=== PATIENT | female | born 2000 | race African-American/Black ===

== ENCOUNTER 2024-03-16 20:04 | Emergency (ER) | payer OTHER, SELFPAY ==
[2024-03-16] MEDS ORDERED: Acetaminophen 500 MG TAB ONE (22:10)
[2024-03-16 22:18] LABS: #Basophils 0.02 10x3/uL (0.0-0.2); #Monocytes 0.64 10x3/uL (0.0-1.1); #Neutrophils 4.05 10x3/uL (1.5-8.4); %Basophils 0.3 % (0.0-2.0); %Lymphocytes 33.1 % (18.0-47.0); %Monocytes 8.4 % (0.0-10.0); %Neutrophils 53.4 % (40.0-75.0); Hematocrit 40.1 % (38.8-50.0); Hemoglobin 11.9 g/dL (13.5-17.5); Mean Corpuscular HGB CONC 29.7 g/dL (32.0-36.0); Mean Corpuscular Hemoglobin 24.6 pg (27.0-33.0); Mean Corpuscular Volume 82.9 fL (81.2-95.1); Mean Platelet Volume 9.6 fL (7.4-10.4); Platelet Count 367 10x3/uL (150-450); Red Blood Cell (RBC) Count 4.84 10x6/uL (4.32-5.72); White Blood Cell (WBC) Count 7.6 10x3/uL (3.5-10.5)
[2024-03-16 22:31] LABS: BHCG - Serum Negative (NEGATIVE); Pregs Control Background? CLEAR/WHITE (CLR/WHITE); Pregs Control Bar Appear? YES (CONTROL BAR)
[2024-03-16 22:34] LABS: Bilirubin Neg (Negative); Blood, Urine Negative (Negative); Clarity Clear (Clear); Glucose, Urine (Dipstick) Normal (Negative); Ketone, Urine Negative (Negative); Leukocyte Negative (Negative); Nitrite Negative (Negative); Protein, Urine (Dipstick) Negative (Neg-Trace); Specific Gravity, Urine 1.015 (1.005-1.030); Urobilinogen Normal mg/dL (Less than 2)
[2024-03-16 22:40] LABS: ALT (SGPT) 28 U/L (8-55); AST (SGOT) 21 U/L (5-34); Alkaline Phosphatase 71 U/L (40-110); Anion Gap 10 mmol/L (10-20); BUN (Urea Nitrogen) 16 mg/dL (7.0-18.7); Bilirubin, Total 0.2 mg/dL (0.2-1.2); Calc. Creatinine Clearance 0 mL/min (70-130); Calcium 9.6 mg/dL (7.8-10.44); Carbon Dioxide 28 mmol/L (22-29); Chloride 105 mmol/L (98-107); Estimated GFR 86; Globulin 3.7 g/dL (2.4-3.5); Glucose 86 mg/dL (70-105); Potassium 4.2 mmol/L (3.5-5.1); Protein, Total 7.7 g/dL (6.0-8.3); Sodium 139 mmol/L (136-145)
[2024-03-16 22:54] LABS: Bacteria/HPF None Seen HPF (None Seen); CAUTI Indications for Culture Pelvic or flank pain; RBC/HPF None Seen HPF (0-3); Squamous Epithelial 0-3 HPF (0-3); WBC/HPF None Seen HPF (0-3)
[2024-03-16 22:55] LABS: Urine Culture Reflex No No
== END 2024-03-17 00:20 | disposition home or self-care (01) ==
LOC: CSHERS 20:04 → EDSEX 20:04 → CSHERS 03-17 00:20
DX: N93.9 Abnormal uterine and vaginal bleeding, unspecified (principal); Z55.6 Problems related to health literacy
CPT/HCPCS: 36415; 76856; 80053; 81001; 84703; 85025; 86900; 86901

== ENCOUNTER 2024-05-15 09:54 | Emergency (ER) | payer MEDICAID, SELFPAY | END 2024-05-15 11:40 | disposition home or self-care (01) | LOC: CSHERS 09:54 | DX: Z36.9 Encounter for antenatal screening, unspecified (principal); B15.9 Hepatitis A without hepatic coma; Z3A.09 9 weeks gestation of pregnancy | CPT/HCPCS: 99283 ==

== ENCOUNTER 2024-11-27 21:27 | Day surgery (SDC) | payer MEDICAID, OTHER ==
[2024-11-27 22:17] VITALS: BMI 44.0
== END 2024-11-27 23:40 | disposition home or self-care (01) ==
LOC: CSHLD/OP 21:27
PROVIDERS: ATTEND Obstetrics & Gynecology
DX: O47.1 False labor at or after 37 completed weeks of gestation (principal); Z3A.37 37 weeks gestation of pregnancy
CPT/HCPCS: 87480; 87510; 87660

== ENCOUNTER 2024-12-09 09:31 | Inpatient (IN) | payer OTHER ==
[2024-12-08 12:53] LABS: Hematocrit 35.3 % (34.9-44.5); Hemoglobin 10.9 g/dL (12.0-15.5); Platelet Count 330 10x3/uL (150-450)
[2024-12-08 13:45] LABS: Hep B Surf Ag Non-Reactive S/CO (NonReactive)
[2024-12-08 13:46] LABS: Syphilis Antibody Index 0.04 S/CO (<1.00 Non-Reactive)
[~2024-12-09 09:31] MED LIST: hydrALAZINE 20 MG/ML VIAL SLOW IVP PRN
[2024-12-09 10:18] VITALS: BMI 44.0
[2024-12-09] MEDS ORDERED: Methylergonovine 0.2 MG/ML VIAL IM PRN ×2 (10:18→12:49)
[2024-12-09] MEDS ORDERED: Bicitra 30 ML UDCUP PO PRN (10:18)
[2024-12-09] MEDS ORDERED: hydrALAZINE 20 MG/ML VIAL SLOW IVP PRN ×2 (10:18→12:49)
[2024-12-09] MEDS ORDERED: Carboprost 250 MCG/ML AMP IM PRN (10:18)
[2024-12-09] MEDS ORDERED: Tranexamic Acid 1,000 MG/10 ML VIAL IVP PRN (10:18)
[2024-12-09] MEDS ORDERED: Diphenoxylate HCl/Atropine Tablet PO PRN (10:18)
[2024-12-09] MEDS ORDERED: Famotidine/PF 20 mg/2ml Vial SLOW IVP PRN (10:18)
[2024-12-09] MEDS ORDERED: Acetaminophen 500 MG TAB PO PRN (10:18)
[2024-12-09] MEDS ORDERED: Azithromycin 500 MG in Sodium Chloride 0.9% 250 ML 250 ML IVPB SCH (10:30)
[2024-12-09] MEDS ORDERED: Oxytocin 30 units/NS 500 ML 500 ML IV SCH ×2 (10:30→13:00)
[2024-12-09] MEDS ORDERED: Ondansetron PF 4 MG/2 ML Vial IVP PRN ×3 (10:35→12:49)
[2024-12-09] MEDS ORDERED: HYDROmorphone 0.5 MG/0.5 ML SYRINGE SLOW IVP PRN (10:35)
[2024-12-09] MEDS ORDERED: Meperidine HCl/PF 25 MG (1 mL) VIAL SLOW IVP PRN (10:35)
[2024-12-09] MEDS ORDERED: diphenhydrAMINE 50 MG/ML VIAL IVP PRN (10:35)
[2024-12-09] MEDS ORDERED: Communication Order-Pharmacy FS SCH (10:45)
[2024-12-09] MEDS ORDERED: Ketorolac Tromethamine 30 MG (1 mL) VIAL IVP SCH (10:45)
[2024-12-09 11:07] LABS: HIV (1/2) Antibody/Antigen Non-Reactive (NonReactive); HIV 1/2 INDEX 0.11 S/CO (<1.00)
[2024-12-09 12:07] LABS: Analyzer IN Cardio CS NICU; Critical Notified Whom: LOUISE, L&D RN
[2024-12-09] MEDS ORDERED: Bisacodyl 10 MG SUPP PR PRN (12:49)
[2024-12-09] MEDS ORDERED: Acetaminophen 325 MG TAB PO PRN (12:49)
[2024-12-09] MEDS ORDERED: diphenhydrAMINE 25 MG CAP PO PRN (12:49)
[2024-12-09] MEDS ORDERED: Lanolin Ointment 7 GM TUBE TOP PRN (12:49)
[2024-12-09] MEDS: Ketorolac Tromethamine 30 MG (1 mL) VIAL IVP PRN (14:04)
[2024-12-09] MEDS: CEFAZOLIN 2 GM VIAL ONE (14:10)
[2024-12-09] MEDS: Phenylephrine 40 MG/NS 250 ML 250 ML ONE (14:11)
[2024-12-09] MEDS: Erythromycin Base 0.5% Oint 1 GM TUBE ONE (14:11)
[2024-12-09] MEDS: Famotidine/PF 20 mg/2ml Vial ONE (14:11)
[2024-12-09] MEDS: Dexamethasone 10 MG/ML VIAL ONE (14:11)
[2024-12-09] MEDS: Ondansetron PF 4 MG/2 ML Vial ONE (14:11)
[2024-12-09] MEDS: Oxytocin 10 UNITS/ML VIAL ONE ×2 (14:11)
[2024-12-09] MEDS: Boostrix 0.5 ML (Tdap) VIAL (>/=7 yrs of age) IM ONE (16:08)
[2024-12-09] MEDS: Ferrous Sulfate 325 MG TAB PO SCH (19:16)
[2024-12-09] MEDS ORDERED: HYDROcodone/Acetaminophen 5/325 mg Tablet PO PRN (22:45)
[2024-12-10] MEDS: HYDROcodone/Acetaminophen 5/325 mg Tablet PO PRN (02:12)
[2024-12-10 05:26] LABS: Hematocrit 25.8 % (34.9-44.5); Hemoglobin 8.0 g/dL (12.0-15.5); Mean Corpuscular Hemoglobin 25.0 pg (27.0-33.0); Mean Corpuscular Volume 80.6 fL (81.6-98.3); Platelet Count 243 10x3/uL (150-450); Red Blood Cell (RBC) Count 3.20 10x6/uL (3.90-5.03); White Blood Cell (WBC) Count 11.39 10x3/uL (3.5-10.5)
[2024-12-10] MEDS: Simethicone Chewable 80 MG TAB PO PRN (08:34)
[2024-12-10] MEDS: Measles/Mumps/Rubella 10 MCG/0.5 ML VIAL SC ONE (08:52)
[2024-12-10] MEDS: Ibuprofen 800 MG TAB PO SCH (23:24)
[2024-12-11 13:04] VITALS: BP 107/59; TEMP 98.3
[2024-12-11] MEDS ORDERED: HYDROcodone/Acetaminophen 10/325 mg Tablet PO PRN (15:10)
[2024-12-15 13:55] LABS: Analyzer IN Cardio CS NICU; Critical Notified Whom: LOUISE, L&D RN; pH (Cord, venous) 7.021 (7.250-7.350)
== END 2024-12-11 15:05 | disposition home or self-care (01) | DRG 788 ==
LOC: CSHLD 09:31 → CSHPP 15:20
PROVIDERS: ADMIT Family Medicine; ATTEND Family Medicine
PROC: 10D00Z1 Extraction of Products of Conception, Low, Open Approach (ICD-10-PCS; principal; 2024-12-09)
PROC: 3E0234Z Introduction of Serum, Toxoid and Vaccine into Muscle, Percutaneous Approach (ICD-10-PCS; 2024-12-09)
PROC: 3E0334Z Introduction of Serum, Toxoid and Vaccine into Peripheral Vein, Percutaneous Approach (ICD-10-PCS; 2024-12-10)
DX: O24.12 Pre-existing type 2 diabetes mellitus, in childbirth (principal); F32.9 Major depressive disorder, single episode, unspecified; O99.344 Other mental disorders complicating childbirth; O99.02 Anemia complicating childbirth; D64.9 Anemia, unspecified; Z3A.39 39 weeks gestation of pregnancy; Z37.0 Single live birth; Z98.890 Other specified postprocedural states; O99.214 Obesity complicating childbirth; E66.9 Obesity, unspecified; Z79.899 Other long term (current) drug therapy
CPT/HCPCS: 36415; 51702; 76819; 82805; 85014; 85018; 85027; 85049; 85461; 86780; 86850; 86900; 86901; 87340; 87389; 90384; 96372; J1100; J1308; J1885; J2274; J2405; J2590; J3010